=== PATIENT | female | born 1970 | race Caucasian/White ===

== ENCOUNTER 2017-12-07 05:05 | Emergency (ER) | payer OTHER ==
[~2017-12-07] VITALS: Ht 160 cm; Wt 90.9 kg
[~2017-12-07 05:05] MED LIST: CIPROFLOXACIN500 MG PO; FLUCONAZOLE100 MG PO; METFORMIN1000 M1 PO; NOL10 PO; NORCO1 TA2 PO
[2017-12-07 05:12] VITALS: Ht 160 cm; Wt 90.9 kg
[2017-12-07 07:02] LABS: BASOPHIL % 0.4 % (0-2); PLATELET COUNT 266 x10^3mcL (130-400); RED CELL DISTRIBUTION WIDTH 14.2 % (11.5-14.5)
[2017-12-07 07:11] VITALS: BP 127/77
[2017-12-07 07:19] LABS: CALCIUM 8.9 mg/dL (8.5-10.1); CARBON DIOXIDE 24.3 mmol/L (21-32); CHLORIDE SERUM 103 mmol/L (98-107); CREATININE SERUM 0.9 mg/dL (0.6-1.0); GFR1 > 60 mL/min; GLUCOSE SERUM 226 mg/dL (74-106); POTASSIUM SERUM 3.9 mmol/L (3.5-5.1); SODIUM SERUM 139 mmol/L (136-145)
[2017-12-07 07:26] LABS: ALBUMIN 3.8 g/dL (3.4-5.0); ALKALINE PHOSPHATASE 108 U/L (46-116); ALT/SGPT 30 U/L (14-59); AST/SGOT 17 U/L (15-37); BILIRUBIN TOTAL 0.8 mg/dL (0.20-1.00); LIPASE 297 IU/L (73-393); TOTAL PROTEIN, SERUM 7.6 g/dL (6.4-8.2)
== END 2017-12-07 08:15 | disposition home or self-care (01) ==
LOC: ED 05:05
PROVIDERS: Emergency Medicine
DX: N39.0 Urinary tract infection, site not specified (principal); Z88.2 Allergy status to sulfonamides; J45.909 Unspecified asthma, uncomplicated; E11.9 Type 2 diabetes mellitus without complications; Z90.710 Acquired absence of both cervix and uterus; Z91.013 Allergy to seafood
CPT/HCPCS: J2405; J3010; J7030

== ENCOUNTER 2018-11-13 06:41 | Emergency (ER) | payer OTHER ==
[~2018-11-13] VITALS: Ht 160 cm; Wt 88.5 kg
[~2018-11-13 06:41] MED LIST changes: +METFORMIN HCL1000 MG; -METFORMIN1000 M1 PO
[2018-11-13 06:52] VITALS: Ht 160 cm; Wt 88.5 kg
[2018-11-13 10:06] VITALS: BP 127/75
== END 2018-11-13 10:06 | disposition home or self-care (01) ==
LOC: ED 06:41
DX: N39.0 Urinary tract infection, site not specified (principal); R51 Headache; R11.2 Nausea with vomiting, unspecified; R06.02 Shortness of breath; M54.2 Cervicalgia; E11.9 Type 2 diabetes mellitus without complications; J45.909 Unspecified asthma, uncomplicated; Z85.3 Personal history of malignant neoplasm of breast; Z88.2 Allergy status to sulfonamides; Z90.710 Acquired absence of both cervix and uterus; Z98.890 Other specified postprocedural states
CPT/HCPCS: 82962; J1885; J3010; J7030

== ENCOUNTER 2019-03-13 12:50 | Inpatient (IN) | payer OTHER ==
[~2019-03-13] VITALS: Ht 160 cm; Wt 87.1 kg
--- NOTE | 2019-03-13 13:27 | NUR ---
AWAKE ALERT ORIENTED, C/O FEVER X 2 DAYS WITH HEADACHE,ALSO LOWER BACK PAIN AND EPIGASTRIC PAIN,STATED VOMITTED BLOOD TODAY DUE TO COUGHING
--- NOTE | 2019-03-13 13:51 | NUR ---
LAB AT BEDSIDE.
--- NOTE | 2019-03-13 13:52 | NUR ---
PT STS SHE HAS A HX OF BREAST CA, STS SHE'S BEEN IN REMISSION X10 YEARS, STS L ARM IS "RESTRICTED, NO BP OR BLOOD DRAWS."
--- NOTE | 2019-03-13 13:54 | NUR ---
EKG IN PROGRESS.
[2019-03-13 14:00] LABS: PLATELET COUNT 216 x10^3mcL (130-400)
[2019-03-13 14:02] LABS: microscopic required? YES; urine erythrocyte 1+ (NEGATIVE)
[2019-03-13 14:07] LABS: BASOPHIL % 0 % (0-2)
[2019-03-13 14:10] LABS: CALCIUM 9.4 mg/dL (8.5-10.1); CARBON DIOXIDE 29.1 mmol/L (21-32); CHLORIDE SERUM 99 mmol/L (98-107); CREATININE SERUM 0.9 mg/dL (0.6-1.0); GFR1 > 60 mL/min; GLUCOSE SERUM 278 mg/dL (74-106); POTASSIUM SERUM 4.5 mmol/L (3.5-5.1); SODIUM SERUM 135 mmol/L (136-145)
[2019-03-13 14:14] LABS: ALBUMIN 3.9 g/dL (3.4-5.0); ALKALINE PHOSPHATASE 103 U/L (46-116); ALT/SGPT 25 U/L (14-59); AST/SGOT 11 U/L (15-37); BILIRUBIN TOTAL 1.92 mg/dL (0.20-1.00); TOTAL PROTEIN, SERUM 7.9 g/dL (6.4-8.2)
[2019-03-13 14:16] LABS: CHOLESTEROL 231 mg/dL (<200); HDL CHOLESTEROL 68 mg/dL (40-60)
--- NOTE | 2019-03-13 14:16 | NUR ---
PT MEDICATED PER EMAR.
--- NOTE | 2019-03-13 15:54 | NUR ---
PT MEDICATED PER EMAR, STS SHE HAS TAKEN NORCO PRIOR TODAY WITH NO ADVERSE REACTION OTHER THAN "STOMACH UPSET".
[2019-03-13] MEDS ORDERED: ZESTRIL5 MG PO (15:59)
[2019-03-13] MEDS ORDERED: NESINA25 MG PO (16:01)
--- NOTE | 2019-03-13 17:06 | NUR ---
REPORT GIVEN TO RYANNE COVARRUBIAS TO ASSUME CARE OF PT.
--- NOTE | 2019-03-13 17:17 | NUR ---
US AT BEDSIDE.
[2019-03-13 17:58] VITALS: BP 103/61
--- NOTE | 2019-03-13 18:01 | NUR ---
RECEIVED PT FROM ED VIA RENAN. ORIENTED PT TO ROOM AND SURROUNDINGS. IV NOTED TO RAC PATENT AND INTACT. INSTRUCTED PT ON THE USE OF CALL LIGHT FOR ASSISTANCE. ENDORSED PT TO PRIMARY NURSE MARCI
--- NOTE | 2019-03-13 19:25 | NUR ---
RECEIVED PT FROM ER, REPORT GIVEN FROM [facility]. PT IS AAOX4. RESP EVEN AND UNLABORED. IV CATH TO RAC, SITE WNL. PT HAS PAIN TO L FLANK. DILADID WILL BE GIVEN. CALL LIGHT WITHIN REACH. BED IN LOWEST POSITION. WILL ENDORSE ALL CARE TO NOC RN.
--- NOTE | 2019-03-13 19:27 | NUR ---
DILAUDID GIVEN FOR L FLANK PAIN. FLU SHOT GIVEN. CALL LIGHT WITHIN REACH.
--- NOTE | 2019-03-13 20:00 | NUR ---
RECEIVED REPORT FROM DAY SHIFT NURSE, MARCI PEARL. PT IS A/O X4. SPEECH IS CLEAR. DENIES LARIOS. FRIEND/FAMILY MEMBER AT BEDSIDE. PULSES ARE PALPABLE, NO EDEMA. BREATHING IS EVEN AND UNLABORED ON RA. ABD IS SOFT AND NONDISTENDED. BS ACTIVE IN ALL 4Q. PT C/O RLQ PAIN THAT RADIATES TO L FLANK. VOIDS FREELY. AMBULATORY WITH MINIMAL ASSIST. SKIN INTACT. DENIES PAIN AT THIS TIME. IV TO RAC RUNNING NS @ 80ML/HR. BED IN LOWEST POSITION. CALL LIGHT WITHIN REACH. WILL CONTINUE TO MONITOR.
--- NOTE | 2019-03-13 21:50 | NUR ---
PT C/O OF 10 PAIN ON HER FLANKS AND ABD. MEDICATED WITH PRN DILUAUDID PER MAR ORDER. WILL REASSESS FOR EFFECTIVNESS. BREATHING IS EVEN AND UNLABORED ON RA. NO SIGNS OF RESP. DISTRESS.
[2019-03-13 21:59] VITALS: BP 136/80
--- NOTE | 2019-03-13 23:10 | NUR ---
PT IS RESTING COMFORTABLY WITH EYES CLOSED, BUT EASILY AROUSABLE WHEN SPOKEN TO. STATES HER PAIN IS BETTER. BREATHING IS EVEN AND UNLABORED. NO SIGNS OF RESP. DISTRESS. BED IN LOWEST POSITION. CALL LIGHT WITHIN REACH. WILL CONTINUE TO MONITOR.
--- NOTE | 2019-03-14 02:13 | NUR ---
PT C/O OF 10/10 FLANK AND ABD PAIN. MEDICATED WITH PRN DILAUDID PER MAR ORDER. WILL REASSESS EFFECTIVENESS. BREATHING IS EVEN AND UNLABORED ON RA. NO SIGNS OF RESP. DISTRESS. BED IN LOWEST POSITION. CALL LIGHT WITHIN REACH. WILL CONTINUE TO MONITOR.
--- NOTE | 2019-03-14 04:41 | NUR ---
PT SLEPT IN INTERVALS THROUGHOUT THE SHIFT AND COMPLIED WITH NURSING CARE THROUGHOUT THE SHIFT WITH NO ACUTE EVENTS OVERNIGHT. COMFORT AND SAFETY MEASURES MAINTAINED. ALL NEEDS ASSESSED AND ATTENDED TO. WILL CONTINUE TO MONITOR AND ENDORSE CARE TO DAY SHIFT NURSE.
[2019-03-14 05:13] VITALS: BP 132/70
--- NOTE | 2019-03-14 05:13 | NUR ---
REPORTED ORAL TEMPERATURE IS 102.2. WILL GIVE PRN TYLENOL PER MAR ORDER. COOLING MEASURES APPLIED. WILL CONTINUE TO MONITOR.
--- NOTE | 2019-03-14 06:30 | NUR ---
PTS ORAL TEMPEATURE STILL REMAIN 102.2. DR. HULL MADE AWARE. AWAITING ORDERS.
[2019-03-14 06:52] LABS: BASOPHIL % 0.3 % (0-2); PLATELET COUNT 163 x10^3mcL (130-400); RED CELL DISTRIBUTION WIDTH 12.7 % (11.5-14.5)
[2019-03-14 07:29] LABS: CARBON DIOXIDE 23.9 mmol/L (21-32); CHLORIDE SERUM 100 mmol/L (98-107); CREATININE SERUM 0.8 mg/dL (0.6-1.0); GFR1 > 60 mL/min; GLUCOSE SERUM 273 mg/dL (74-106); MAGNESIUM 1.4 mg/dL (1.8-2.4); POTASSIUM SERUM 4.2 mmol/L (3.5-5.1); SODIUM SERUM 134 mmol/L (136-145)
--- NOTE | 2019-03-14 07:43 | NUR ---
ENDORSED CARE TO DAY SHIFT NURSEGENE RN.
--- NOTE | 2019-03-14 08:00 | NUR ---
DOZING OFF AND ON. RESPONDS TO VERBAL. BREATHING FREELY ON RA. NS INFUSING 80 CC HOUR TO RT AC. INTERMITTENT LEFT FLANK PAIN. REFUSES NORCO. SAYS SHE TAKES NORCO AT HOME FOR ARTHRITIS IN HER RIGHT HAND. DILAUDID 1 MG IV HELPFUL FOR APPROX 3 HOURS. INTERMITTENT NAUSEA. COOLING MEASURES IN PLACE. BRP. CALL LIGHT WITHIN REACH. MED SURG PT.
[2019-03-14 09:53] VITALS: BP 102/64
[2019-03-14 16:31] VITALS: BP 111/45
[2019-03-14 16:34] VITALS: BP 111/45
--- NOTE | 2019-03-14 19:09 | NUR ---
ALERT AND ORIENTED. CONTINUES ON ROCEPHIN IV ABX. NS 80 CC HOUR. BRP. SURU AT BEDSIDE ATTEMPTING TO INSERT NEW IV SITE AC RT AC BECAME INFILTRATED. INTERMITTENT NAUSEA AND VOMITING, LEFT FLANK PAIN. RECEIVES ZOFRAN AND DILAUDID. AFEBRILE SINCE THIS AM. CALL LIGHT WITHIN REACH.
[2019-03-14 19:10] VITALS: BP 111/49; BP 120/77
--- NOTE | 2019-03-14 19:10 | NUR ---
PT IS AAOX4 AND DENIES ANY HEADACHE OR DIZZINESS AT THIS TIME. PT IS MED-SURG. PT DENIES ANY CHEST PAIN OR PRESSURE AT THIS TIME. PT PULSES ARE PALPABLE AND CAP REFILL ARE <3 SEC. PT LUNG SOUNDS ARE CTA ON RA. PT BREATHING IS EVEN AND UNLABORED. PT DENIES ANY SOB OR RESPIRATORY DISTRESS AT THIS TIME. PT HAS NORMOACTIVE BOWEL SOUNDS X4. PT ABD IS SOFT AND NONDISTENDED. PT C/O N/V AT THIS TIME. PT VOIDS FREELY WITH BRP. PT IS AMBULATORY AND ABLE TO REPOSITION SELF IN BED. PT SKIN INTACT AND WNL. PER DAY SHIFT RN, PT WILL NEED NEW IV INSERTION DUE TO INFILTRATION. WILL ATTEMPT NEW IV INSERTION AND ADMINISTER ZOFRAN AND DILAUDID PRN AFTER. CALL LIGHT WITHIN REACH. BED IN LOWEST POSITION. WILL CONTINUE TO MONITOR.
--- NOTE | 2019-03-14 19:15 | NUR ---
PT TEMP 100.3F. PROVIDED PT WITH ICE PACKS, REMOVED BLANKETS, AND TURNED ON AC COOLING MEASURES. WILL REASSESS TEMP. WILL CONTINUE TO MONITOR.
--- NOTE | 2019-03-14 19:24 | NUR ---
NOTED PT HAD RT AC IV INFILTRATED PRIOR TO ADMIN ZOFRAN AND DILAUDID IV. PT DOES NOT HAVE IV ACCESS AT THIS TIME. GAVE DILAUDID AND ZOFRAN TO NOC RYANNE FAULKNER FOR ADMINISTRTION AFTER NEW IV INSERTED.
--- NOTE | 2019-03-14 21:30 | NUR ---
REATTEMPTED IV INSERTION ON PT A COUPLE OF TIMES. PT WAS SPECIFIC OF WHERE SHE WANTED IV INSERTION. AFTER A COUPLE ATTEMPTS, IV INSERTION WAS UNSUCCESSFUL. CALLED DR. HOOKER AND MADE AWARE OF UNSUCCESSFUL IV INSERTION. PER DR. HOOKER, IV MEDS WILL BE D/C. KEFLEX PO AND DILAUDID PO WILL BE ORDERED. PT MADE AWARE OF MED CHANGES AND AGREES TO THEM.
--- NOTE | 2019-03-14 23:25 | NUR ---
PT C/O FLANK PAIN OF 7/10. PER MAR, ADMINISTERED DILAUDID PO PRN FOR PAIN. WILL REASSESS IN ONE HOUR. WILL CONTINUE TO MONITOR.
--- NOTE | 2019-03-15 00:54 | NUR ---
REASSESSED PT TEMP. TEMP IS 100.0F TEMPORAL. PER JUL, ADMINISTERED MOTRIN PO PRN. COOLING MEASURES STILL IN PLACE: ICE PACKS, REMOVAL OF BLANKETS, AND AC IS TURNED ON. WILL REASSESS IN ONE HOUR. WILL CONTINUE TO MONITOR.
--- NOTE | 2019-03-15 05:05 | NUR ---
PT SLEPT THROUGHOUT THE NIGHT. PT WAS EASILY AROUSABLE WHEN SPOKEN TO. PT COMPLIED WITH NURSING CARE THROUGHOUT THE SHIFT. NO ACUTE DISTRESS NOTED DURING THE SHIFT. COMFORT AND SAFETY MEASURES MAINTAINED. ALL NEEDS AND CONCERNS ADDRESSED. NO IV ACCESS AT THIS TIME. MD IS AWARE. WILL ENDORSE CARE TO DAY SHIFT NURSE. CALL LIGHT WITHIN REACH. BED IN LOWEST POSITION. WILL CONTINUE TO MONITOR.
[2019-03-15 06:02] VITALS: BP 108/67
[2019-03-15 06:18] LABS: BASOPHIL % 0.3 % (0-2); PLATELET COUNT 167 x10^3mcL (130-400); RED CELL DISTRIBUTION WIDTH 12.7 % (11.5-14.5)
[2019-03-15 06:21] LABS: ALKALINE PHOSPHATASE 86 U/L (46-116); ALT/SGPT 17 U/L (14-59); AST/SGOT 10 U/L (15-37); BILIRUBIN TOTAL 0.97 mg/dL (0.20-1.00); CALCIUM 8.6 mg/dL (8.5-10.1); CHLORIDE SERUM 101 mmol/L (98-107); CREATININE SERUM 0.8 mg/dL (0.6-1.0); GFR1 > 60 mL/min; GLUCOSE SERUM 263 mg/dL (74-106); POTASSIUM SERUM 4.7 mmol/L (3.5-5.1); SODIUM SERUM 136 mmol/L (136-145); TOTAL PROTEIN, SERUM 6.6 g/dL (6.4-8.2)
[2019-03-15 06:22] LABS: ALBUMIN 2.8 g/dL (3.4-5.0)
--- NOTE | 2019-03-15 08:00 | NUR ---
ALERT AND ORIENTED. BREATHING FREELY ON RA. NO IV ACCESS, PT REFUSES IV INSERTION AFTER MULTIPLE ATTEMPTS LAST NIGHT. CONTINUES TO HAVE NAUSEA. UNABLE TO ADMIN ZOFRAN WITHOUT IV ACCESS. HAVING LEFT FLANK PAIN BUT REFUSES DILAUDID PILL D/T NAUSEA. PT DOZING OFF AND ON.
[2019-03-15 09:44] VITALS: BP 122/79
[2019-03-15] MEDS ORDERED: LEVAQUIN750 MG PO (09:53)
[2019-03-15 11:42] VITALS: BP 122/79
--- NOTE | 2019-03-15 12:20 | NUR ---
DC'D TO HOME. NO IV NO TELE. RX FOR LEVAQUIN CALLED IN TO [facility] BY DR. TASIA MALONE, ALL DC INSTRUCTIONS REVIEWED WITH AND SIGNED BY PT. PT DID SAY THAT SHE DOES NOT FEEL WELL AND WILL PROBABLY COME BACK TO ER.
[2019-03-16 11:49] VITALS: Ht 160 cm; Wt 87.1 kg
== END 2019-03-15 12:38 | disposition home or self-care (01) | DRG 872 ==
LOC: ED 12:50 → MU 16:41
PROVIDERS: Emergency Medicine; Internal Medicine Pulmonary Disease; ADMIT Internal Medicine Pulmonary Disease
DX: A41.9 Sepsis, unspecified organism (principal); N10 Acute pyelonephritis; E66.9 Obesity, unspecified; E11.65 Type 2 diabetes mellitus with hyperglycemia; Z88.2 Allergy status to sulfonamides; Z88.5 Allergy status to narcotic agent; Z91.013 Allergy to seafood; Z90.710 Acquired absence of both cervix and uterus; Z23 Encounter for immunization; Z83.3 Family history of diabetes mellitus; Z79.84 Long term (current) use of oral hypoglycemic drugs; Z79.899 Other long term (current) drug therapy; Z68.34 Body mass index [BMI] 34.0-34.9, adult
CPT/HCPCS: 82962; 87804; 90658; G0378; J0696; J1170; J1885; J2405; J3420; J7030; Q0092